=== PATIENT | female | born 1950 | race Caucasian/White ===

== ENCOUNTER 2018-01-10 22:57 | Emergency (ER) | payer MEDICARE, OTHER ==
[2018-01-11] MEDS: HYDROCODONE/APAP (10/325) TAB PO (00:12)
== END 2018-01-11 02:20 | disposition home or self-care (01) ==
LOC: FTE 01-11 02:20
DX: M25.562 Pain in left knee (principal); F17.210 Nicotine dependence, cigarettes, uncomplicated; M79.605 Pain in left leg; Z79.84 Long term (current) use of oral hypoglycemic drugs
CPT/HCPCS: 73562; 93971; 99283-25